=== PATIENT | female | born 1940 | race Caucasian/White ===

== ENCOUNTER → 2019-09-12 10:12 | Outpatient (CLI) | payer MEDICARE, OTHER, SELFPAY ==
--- NOTE | 2019-09-12 | DI.MG.S_ITS ---
BILATERAL DIGITAL SCREENING MAMMOGRAM 3D/2D WITH CAD: 09/12/2019 CLINICAL: Routine screening. Family history of breast cancer. Comparison is made to exams dated: 05/06/2016 mammogram, 03/13/2015 mammogram, and 04/11/2013 mammogram - [facility]. The tissue of both breasts is heterogeneously dense. This may lower the sensitivity of mammography. Current study was also evaluated with a Computer Aided Detection (CAD) system. There are linear heterogeneous calcifications in the right breast anterior depth central to the nipple seen on the craniocaudal view only. These appear more prominent. There is a possible 0.5 cm oval equal density asymmetry in the left breast middle depth medial region seen on the craniocaudal view only. No other significant masses or calcifications are seen in either breast. IMPRESSION: INCOMPLETE: NEEDS ADDITIONAL IMAGING EVALUATION The linear heterogeneous calcifications in the right breast anterior depth central to the nipple seen on the craniocaudal view only are indeterminate. Mediolateral and spot magnification views are recommended. The possible 0.5 cm oval equal density asymmetry in the left breast middle depth medial region seen on the craniocaudal view only is indeterminate. Additional views with possible ultrasound are recommended. This exam was interpreted at Station ID: [id number]. NOTE: For mammograms, a report in lay terms will be sent to the patient. Approximately 15% of breast malignancies will not be visualized mammographically. In the management of a palpable breast mass, a negative mammogram must not discourage biopsy of a clinically suspicious lesion. Electronically Signed By: Adiel Choi M.D. aty/:09/12/2019 15:43:48 letter sent: Additional Imaging Needed ACR BI-RADS Category 0: Incomplete 3340F
== END ==
PROVIDERS: PCP Family Medicine; Referring Provider Family Medicine; Visit Provider Family Medicine
DX: Z12.31 Encounter for screening mammogram for malignant neoplasm of breast (principal); Z80.3 Family history of malignant neoplasm of breast
CPT/HCPCS: 77063; 77067

== ENCOUNTER → 2019-09-27 08:46 | Outpatient (CLI) | payer MEDICARE, OTHER, SELFPAY ==
--- NOTE | 2019-09-27 | DI.US.S_ITS ---
LIMITED ULTRASOUND OF LEFT BREAST: 09/27/2019 CLINICAL: Patient returns today to evaluate a focal asymmetry in the left breast. Comparison is made to exams dated: 09/27/2019 mammogram, 09/12/2019 mammogram, 05/06/2016 mammogram, 03/13/2015 mammogram, 04/11/2013 mammogram, and 03/30/2012 mammogram - [facility]. Color flow and real-time ultrasound of the left breast 9 o'clock, and retroareolar regions were performed. Mejia scale images of the real-time examination were reviewed. There is a 0.4 cm x 0.3 cm x 0.4 cm oval complicated cyst with a septated internal wall in the left breast at 9 o'clock anterior depth. This oval complicated cyst displays posterior acoustic enhancement. This probably correlates with mammography findings. IMPRESSION: PROBABLY BENIGN The 0.4 cm oval complicated cyst in the left breast is probably benign. A follow-up left mammogram and an ultrasound in 6 months is recommended to demonstrate stability. Additionally, a 6 month follow up right breast mammogram with magnification views is recommended to follow calcifications. Findings and recommendations were conveyed to the patient at time of exam. This exam was interpreted at Station ID: [id number]. Electronically Signed By: Consuelo villatoro/:09/27/2019 10:46:38 letter sent: Followup Recommended Ultrasound BI-RADS: 3 Probably benign
--- NOTE | 2019-09-27 | DI.MG.S_ITS ---
BILATERAL DIGITAL DIAGNOSTIC MAMMOGRAM 3D/2D WITH ADDITIONAL VIEWS: 09/27/2019 CLINICAL: Additional evaluation requested from prior study. Comparison is made to exams dated: 09/12/2019 mammogram, 05/06/2016 mammogram, and 03/13/2015 mammogram - [facility]. The tissue of both breasts is heterogeneously dense. This may lower the sensitivity of mammography. There are diffuse. faint, heterogeneous calcifications in the right breast anterior depth central to the nipple seen on the craniocaudal view only. These are less prominent in additional views. There is a possible 0.5 cm oval equal density asymmetry in the left breast middle depth medial region seen on the craniocaudal view only. This partially resolves with additional views. No other significant masses or calcifications are seen in either breast. IMPRESSION: INCOMPLETE: NEEDS ADDITIONAL IMAGING EVALUATION The diffuse heterogeneous calcifications in the right breast anterior depth central to the nipple seen on the craniocaudal view only are probably benign. A follow-up mammogram in 6 months is recommended. The possible 0.5 cm oval equal density asymmetry in the left breast middle depth medial region seen on the craniocaudal view only partially resolves, but remains indeterminate. An ultrasound is recommended. This was performed immediately following this exam. This exam was interpreted at Station ID: [id number]. NOTE: For mammograms, a report in lay terms will be sent to the patient. Approximately 15% of breast malignancies will not be visualized mammographically. In the management of a palpable breast mass, a negative mammogram must not discourage biopsy of a clinically suspicious lesion. Electronically Signed By: Consuelo villatoro/:09/27/2019 10:03:55 ACR BI-RADS Category 0: Incomplete 3340F
== END ==
PROVIDERS: PCP Family Medicine; Referring Provider Family Medicine; Visit Provider Family Medicine
DX: R92.8 Other abnormal and inconclusive findings on diagnostic imaging of breast (principal); R92.1 Mammographic calcification found on diagnostic imaging of breast; N60.02 Solitary cyst of left breast
CPT/HCPCS: 76642; 77066; G0279

== ENCOUNTER → 2020-03-23 12:34 | Outpatient (CLI) | payer MEDICARE, OTHER, SELFPAY ==
--- NOTE | 2020-03-23 | DI.MG.S_ITS ---
BILATERAL DIGITAL DIAGNOSTIC MAMMOGRAM 3D/2D: 03/23/2020 CLINICAL: Short term follow up. Comparison is made to exams dated: 09/27/2019 mammogram, 09/12/2019 mammogram, and 05/06/2016 mammogram - [facility]. The tissue of both breasts is heterogeneously dense. This may lower the sensitivity of mammography. Redemonstration of previously described diffuse heterogeneous calcifications in the right breast anterior depth central to the nipple seen on the craniocaudal view only. These are not significantly changed. There is an oval equal density asymmetry in the left breast middle depth medial region seen on the craniocaudal view only. This is less prominent. No other significant masses or calcifications are seen in either breast. IMPRESSION: INCOMPLETE: NEEDS ADDITIONAL IMAGING EVALUATION The diffuse heterogeneous calcifications in the right breast anterior depth central to the nipple seen on the craniocaudal view only are probably benign. The oval equal density asymmetry in the left breast middle depth medial region seen on the craniocaudal view only is indeterminate. An ultrasound is recommended for further evaluation and is scheduled to immediately follow this examination. This exam was interpreted at Station ID: [id number]. NOTE: For mammograms, a report in lay terms will be sent to the patient. Approximately 15% of breast malignancies will not be visualized mammographically. In the management of a palpable breast mass, a negative mammogram must not discourage biopsy of a clinically suspicious lesion. Electronically Signed By: Adiel Choi M.D. aty/:03/23/2020 13:26:11 ACR BI-RADS Category 0: Incomplete 3340F
--- NOTE | 2020-03-23 | DI.US.S_ITS ---
ULTRASOUND OF LEFT BREAST: 03/23/2020 CLINICAL: 6 month follow-up of cyst left breast. Comparison is made to exams dated: 03/23/2020 mammogram, 09/27/2019 ultrasound, 09/27/2019 mammogram, 09/12/2019 mammogram, 05/06/2016 mammogram, and 03/13/2015 mammogram - [facility]. Color flow and real-time ultrasound of the left breast were performed. Mejia scale images of the real-time examination were reviewed. Redemonstration of previously described 0.4 cm x 0.3 cm x 0.2 cm oval complicated cyst with a septated internal wall in the left breast at 9 o'clock anterior depth. This oval complicated cyst is hypoechoic with posterior acoustic enhancement. This abnormality is not significantly changed and correlates with mammography findings. IMPRESSION: PROBABLY BENIGN The likely 0.4 cm x 0.3 cm x 0.2 cm oval complicated cyst in the left breast is probably benign. A follow-up left mammogram and a left ultrasound in 6 months is recommended to demonstrate stability. The patient will also be due for screening mammogram of the contralateral breast at that time. Findings and recommendations were conveyed to the patient during today's evaluation. This exam was interpreted at Station ID: [id number]. Electronically Signed By: Adiel Choi M.D. at/:03/23/2020 13:50:37 letter sent: Followup Recommended Ultrasound BI-RADS: 3 Probably benign
== END ==
PROVIDERS: PCP Family Medicine; Referring Provider Family Medicine; Visit Provider Family Medicine
DX: R92.8 Other abnormal and inconclusive findings on diagnostic imaging of breast (principal); R92.1 Mammographic calcification found on diagnostic imaging of breast; N60.02 Solitary cyst of left breast
CPT/HCPCS: 76642; 77066; G0279

== ENCOUNTER → 2021-01-19 12:21 | Outpatient (CLI) | payer MEDICARE, OTHER, SELFPAY ==
--- NOTE | 2021-01-19 | DI.MG.S_ITS ---
BILATERAL DIGITAL DIAGNOSTIC MAMMOGRAM 3D/2D: 01/19/2021 CLINICAL: Short term follow up bilteral breast. Comparison is made to exams dated: 03/23/2020 ultrasound, 03/23/2020 mammogram, 09/27/2019 mammogram, and 09/12/2019 mammogram - [facility]. The tissue of both breasts is heterogeneously dense. This may lower the sensitivity of mammography. There are diffuse heterogeneous calcifications in the right breast anterior depth. These are not significantly changed. The oval asymmetry in the left breast middle depth medial region previously seen on the craniocaudal view only is no longer seen. No other significant masses or calcifications are seen in either breast. IMPRESSION: INCOMPLETE: NEEDS ADDITIONAL IMAGING EVALUATION The diffuse heterogeneous calcifications in the right breast anterior depth central to the nipple seen on the craniocaudal view only are probably benign. 6 month follow up right mammogram to document stability is recommended. Left breast ultrasound to reevaluate the 0.4 cm complicated cyst previously corresponding to the no longer seen medial asymmetry is recommended and was performed following this exam. This exam was interpreted at Station ID: [id number]. NOTE: For mammograms, a report in lay terms will be sent to the patient. Approximately 15% of breast malignancies will not be visualized mammographically. In the management of a palpable breast mass, a negative mammogram must not discourage biopsy of a clinically suspicious lesion. Electronically Signed By: Consuelo villatoro/:01/19/2021 13:36:46 ACR BI-RADS Category 0: Incomplete 3340F
--- NOTE | 2021-01-19 | DI.US.S_ITS ---
ULTRASOUND OF LEFT BREAST: 01/19/2021 CLINICAL: Patient returns today to evaluate a focal asymmetry in the left breast. Comparison is made to exams dated: 01/19/2021 mammogram, 03/23/2020 ultrasound, 03/23/2020 mammogram, 09/27/2019 ultrasound, 09/27/2019 mammogram, and 09/12/2019 mammogram - [facility]. Color flow and real-time ultrasound of the left breast were performed. Mejia scale images of the real-time examination were reviewed. There is a benign 0.3 cm x 0.2 cm x 0.1 cm oval cyst in the left breast at 9 o'clock middle depth. This oval cyst is hypoechoic. This abnormality is decreased in size. Color flow imaging demonstrates that there is no vascularity present. IMPRESSION: PROBABLY BENIGN The 0.3 cm x 0.2 cm x 0.1 cm oval cyst in the left breast has decreased in size on ultrasound, has resolved on mammogram, and most likely is a benign complicated cyst. No further follow up for this finding is needed. The right breast demonstrated stable probably benign calcifications on mammogram. A follow-up right mammogram in 6 months is recommended to demonstrate continued stability. Findings and recommendations were conveyed to the patient at time of exam. This exam was interpreted at Station ID: [id number]. Electronically Signed By: Consuelo villatoro/:01/19/2021 15:53:39 letter sent: Followup Recommended Ultrasound BI-RADS: 3 Probably benign
== END ==
PROVIDERS: PCP Family Medicine; Referring Provider Family Medicine; Visit Provider Family Medicine
DX: R92.8 Other abnormal and inconclusive findings on diagnostic imaging of breast (principal); R92.1 Mammographic calcification found on diagnostic imaging of breast; N60.02 Solitary cyst of left breast
CPT/HCPCS: 76642; 77066; G0279